=== PATIENT | female | born 1980 | race Hispanic/Latino ===

== ENCOUNTER 2018-03-20 17:51 | Inpatient (IN) | payer MEDICAID, OTHER | END 2018-03-22 17:10 | disposition home or self-care (01) | LOC: LDH 17:51 → WSH 03-21 17:36 ==

== ENCOUNTER 2020-05-10 12:24 | Observation (INO) | payer MEDICAID, OTHER ==
[~2020-05-10] VITALS: Ht 172.7 cm; Wt 76.2 kg
[2020-05-10] MEDS ORDERED: SODIUM CHLORIDE 0.9% 1000ML 1,000 ML IV ONE ×2 (12:52→14:15)
[2020-05-10 12:56] LABS: BASOPHILS % (AUTO) 0.3 % (0.0-5.0); EOSINOPHILS % (AUTO) 0.9 % (0.0-8.0); MEAN CORPUSCULAR HEMOGLOBIN 30.5 pg (27.0-33.0); MEAN CORPUSCULAR HGB CONC 33.9 g/dL (32.0-36.0); MEAN CORPUSCULAR VOLUME 89.8 fL (79-99); NEUTROPHILS % (AUTO) 77.5 % (40.0-77.0); PLATELET COUNT (AUTO) 319 K/uL (130-400); RED BLOOD CELL COUNT(AUTO) 4.23 MIL/uL (4.00-5.50); RED CELL DISTRIBUTION WIDTH 11.9 % (11.0-15.5); WHITE BLOOD COUNT (AUTO) 14.9 K/uL (4.8-10.8)
[2020-05-10 13:07] LABS: CREATININE 0.9 mg/dL (0.5-1.5); POTASSIUM 3.5 mmol/L (3.5-5.1)
[2020-05-10 13:09] LABS: INR 0.99 (0.85-1.15); PROTHROMBIN TIME 10.8 SEC (9.6-11.6)
[2020-05-10 13:11] LABS: PARTIAL THROMBOPLASTIN TIME 23.9 SEC (26.3-35.5)
[2020-05-10 13:17] LABS: ALBUMIN 4.1 g/dL (3.5-5.0); BILIRUBIN,TOTAL 0.5 mg/dL (0.2-1.0); TOTAL PROTEIN, SERUM 7.7 g/dL (6.0-8.3)
[2020-05-10 13:29] LABS: APPEARANCE,URINE Cloudy (CLEAR); BILIRUBIN,URINE Small (NEGATIVE); COLOR,URINE Dark Yellow (YELLOW); GLUCOSE, URINE (UA) Negative (NEGATIVE); KETONES,URINE Trace mg/dL (NEGATIVE); LEUKOCYTE ESTERASE ,URINE Trace (NEGATIVE); NITRATE,URINE Negative (NEGATIVE); OCCULT BLOOD,URINE Small (NEGATIVE); PROTEIN,URINE POS 2+ mg/dL (NEGATIVE)
[2020-05-10 13:58] LABS: BACTERIA,URINE Moderate /HPF (None Seen)
[2020-05-10 15:50] VITALS: BP 107/66
[2020-05-10] MEDS ORDERED: NORE1PAT7 TD (16:32)
[2020-05-10] MEDS: ESTROGENS,CONJUGATED 25 MG/VIAL IV SCH ×2 (17:51→23:07)
[2020-05-10] MEDS: SODIUM CHLORIDE 0.9% 1000ML 1,000 ML IV SCH (17:51)
[2020-05-10 19:41] VITALS: BP 121/89
[2020-05-10 23:35] VITALS: BP 115/66
[2020-05-11] VITALS (21 sets, daily range): BP systolic 102–140; BP diastolic 50–84
[2020-05-11] MEDS: SODIUM CHLORIDE 0.9% 1000ML 1,000 ML IV SCH (02:21)
[2020-05-11] MEDS ORDERED: METHYLERGONOVINE MALEATE 0.2 MG/1 ML ML ONE (04:02)
[2020-05-11 06:36] LABS: HEMATOCRIT 23.5 % (36-48); MEAN CORPUSCULAR HEMOGLOBIN 30.1 pg (27.0-33.0); MEAN CORPUSCULAR HGB CONC 32.8 g/dL (32.0-36.0); MEAN CORPUSCULAR VOLUME 91.8 fL (79-99); RED BLOOD CELL COUNT(AUTO) 2.56 MIL/uL (4.00-5.50); RED CELL DISTRIBUTION WIDTH 12.1 % (11.0-15.5); WHITE BLOOD COUNT (AUTO) 9.7 K/uL (4.8-10.8)
[2020-05-11 07:46] LABS: THYROID STIMULATING HORMONE 1.37 uIU/mL (0.36-3.74)
[2020-05-11] MEDS ORDERED: ONDANSETRON HCL 4 MG/2 ML VIAL ONE (09:39)
[2020-05-11] MEDS ORDERED: SUCCINYLCHOLINE 200MG/10ML SYR ONE ×2 (09:39→09:59)
[2020-05-11] MEDS ORDERED: PROPOFOL 10 MG/ML 20ML VIAL IV ONE (09:39)
[2020-05-11] MEDS ORDERED: MIDAZOLAM HCL 1 MG/ML 2ML VIAL ONE (09:39)
[2020-05-11] MEDS ORDERED: LIDOCAINE PF 2% 5ML ABBOJECT ONE ×2 (09:39→09:59)
[2020-05-11] MEDS ORDERED: DEXAMETHASONE SOD PHOSPHATE 10MG/ML 1ML VIAL ONE (09:39)
[2020-05-11] MEDS ORDERED: MEPERIDINE-PF 25 MG/ML SYG ONE ×2 (09:40→11:57)
[2020-05-11] MEDS ORDERED: FENTANYL CITRATE PF 50 MCG/1 ML 2ML VIAL ONE (09:40)
[2020-05-11] MEDS ORDERED: CEFAZOLIN SODIUM 1 GM VIAL ONE (10:36)
[2020-05-11] MEDS ORDERED: GLYCOPYRROLATE 1 MG/5 ML SYRINGE ONE (10:48)
[2020-05-11] MEDS ORDERED: CALDOLOR 800MG+NS 250ML 250 ML IV ONE (11:16)
[2020-05-11] MEDS ORDERED: TRANEXAMIC ACID 1000MG/10ML ONE (11:30)
[2020-05-11] MEDS ORDERED: PROMETHAZINE HCL 25 MG/ML 1ML AMPULE IM PRN (12:45)
[2020-05-11] MEDS ORDERED: ONDANSETRON HCL 4 MG/2 ML VIAL IVP PRN (12:45)
[2020-05-11] MEDS ORDERED: ACETAMINOPHEN 325 MG TAB PO PRN (12:45)
== END 2020-05-11 17:40 | disposition home or self-care (01) ==
LOC: EDH 12:24 → EDHIP 12:25 → WSH 15:50
PROVIDERS: ADMIT Obstetrics & Gynecology; ATTEND Obstetrics & Gynecology
DX: N92.1 Excessive and frequent menstruation with irregular cycle (principal); Z20.822 Contact with and (suspected) exposure to COVID-19; I95.9 Hypotension, unspecified; I10 Essential (primary) hypertension; Z79.899 Other long term (current) drug therapy
CPT/HCPCS: 36415 ×2; 58558; 76856; 80053; 81001; 84439; 84443; 84481; 84702; 85025; 85027; 85610; 85730; 86900; 86901; 87088; 87426; 96361 ×3; 96374; 96375; 96376; 99291; A4351; G0378 ×26; J0330 ×2; J0690; J1100; J1410; J1741; J2001 ×2; J2175 ×2; J2250; J2405 ×2; J2704; J3010; J3490 ×2; J7030 ×3; U0003; 88305; 88341; 88342; 96365; 96366; J2210